=== PATIENT | female | born 1940 | race Caucasian/White ===

== ENCOUNTER → 2016-12-03 | Day surgery (SDC) | payer MEDICARE, OTHER ==
[~2016-12-03] MED LIST: ACID REDUCER150 MG PO; ARAVA20 MG PO; ATIVAN 1 MG1 MG PO; CALCIUM600 MG PO; DAILY VITE1 EACH PO; LISINOPRIL-HCT1 EAC1 PO; MAGNESIUM400 M1 PO; MECLIZINE HCL12.5 MG PO; MELATONIN10 MG PO; NORCO 5-325 TA1 EACH PO; NORVASC5 MG PO; PLAQUENIL200 MG PO; PREDNISONE5 MG PO; ULTRAM50 MG PO; VITAMIN D3400 UNIT PO; ZINC50 M1 PO
--- NOTE | ~2016-12-03 | OR ---
PATIENT'S NAME: ZENON PIERCE [facility] AGE: 76 Y [address] ROOM: [place] [address] [place] [facility] [place]: 12/03/2016 OR/Procedure Report DISCHARGE DATE: FAMILY PHYSICIAN: Baljit Watt PA-C ATTENDING PHYSICIAN: Chandrakant Godoy SURGEON: Chandrakant Godoy DPM MANAGER ACTUARIAL: DATE OF PROCEDURE: 12/03/2016 PREOPERATIVE DIAGNOSES: 1. Severe hallux valgus and bunion deformity, left foot. 2. Hammertoe deformity, second, third and fourth toes, left foot. 3. Dislocation of second, third, and fourth metatarsophalangeal joints, left foot. 4. Overlapping second, third, fourth toes, left foot. 5. Rheumatoid arthritis per patient history. POSTOPERATIVE DIAGNOSES: 1. Severe hallux valgus and bunion deformity, left foot. 2. Hammertoe deformity, second, third and fourth toes, left foot. 3. Dislocation of second, third, and fourth metatarsophalangeal joints, left foot. 4. Overlapping second, third, fourth toes, left foot. 5. Rheumatoid arthritis per patient history. PROCEDURES PERFORMED: 1. Boyd bunionectomy with total implant arthroplasty, first metatarsophalangeal joint (silastic total implant with proximal grommet) left foot. 2. Arthrodesis of proximal interphalangeal joints, second, third, and fourth toes with insertion of HammerFix implant (size medium second and third and size small fourth toe) left foot. 3. Metatarsal head resection, second, third, and fourth metatarsal left foot. OPERATIVE SUMMARY: On 12/03/2016, this 76-year-old female was transported to the operating room and placed on the operating room table in supine position. Next, under sedation local anesthesia was achieved via ankle block to the left. Next, the left foot was prepped and draped in the usual sterile fashion. Next, a pneumatic ankle tourniquet was applied to well-padded to site just proximal to malleoli and rapidly inflated to 200 mmHg, following exsanguination by Arthur Esmarch bandage. Next, the left lower extremity was delivered back to the operating room table, sterile draping was completed, and the following procedure was performed. PATIENT'S NAME: ZENON PIERCE [facility] AGE: 76 Y [address] ROOM: [place] [id number] [place] [facility] [place]: 12/03/2016 OR/Procedure Report DISCHARGE DATE: FAMILY PHYSICIAN: Baljit Watt PA-C ATTENDING PHYSICIAN: Chandrakant Godoy BUNIONECTOMY WITH TOTAL IMPLANT ARTHROPLASTY FIRST METATARSOPHALANGEAL JOINT (SILASTIC SIZE 20 WITH PROXIMAL GROMMET) LEFT FOOT At this time, the attention was directed towards the patient's left foot, on preoperative evaluation, she was noted to have severe hallux valgus with associated bunion deformity. The second, third, and fourth toes were overlapping the hallux laterally causing significant deformity and discomfort to the plantar aspect of the foot. So, to correct the digital deformities, the severe bunion needed to be addressed. Preoperative X-ray evaluation also revealed poor bone stock. It was determined that implant arthroplasty would be the best option. So at this time, an approximately 5-1/2 cm dorsal linear skin incision was created in the dorsal medial aspect of the first metatarsophalangeal joint on the left foot. This incision was deepened down through the subcutaneous tissues. All coursing venous tributaries were identified, isolated, clamped, cut, electrocoagulated, and encountered. All vital neurovascular structure were gently retracted in the medial and lateral fashion. Dissection was carried down to the level of the capsular and periosteal structures of the first metatarsophalangeal joint. Next, linear capsule and periosteal incision were created at the confines of the original skin incision. Next, the tissue was dissected in a medial and lateral fashion bringing it through the significant hypertrophic dorsal and medial eminence of the first metatarsal head. Overall, the articular surfaces were determined to be in fairly good condition considering there is complete lateral subluxation of the hallux. Next, attention was directed towards the lateral aspect where a comprehensive soft tissue release was performed including incising the extensor hallucis brevis tendon to be transposed medially at the time of closure. Also, medial capsulorrhaphy was created to help correct the valgus deformity at the time of closure. Next, attention was directed towards the joint where utilizing a sagittal saw, distal articular surface was removed first from the head of the metatarsal utilizing the implant osteotomy guide to minimize shortening and then the base of the proximal phalanx to the hallux was removed in the similar fashion. This was then freed from surrounding soft tissue attachments and extricated in toto from the surgical site. Once this has been completed, progressive reaming was used first on the metatarsal and then on the base of phalanx for placement of total silastic great toe implant. Once this had been completed, trial sizers were used and it was determined size 20 would be the best option. So, the wound was then flushed with copious amounts of sterile saline and the size 20 implant was placed with proximal grommet to protect from rubbing the bone against the implant. Once this was in position, there was noted to be very good reduction of the prior deformity. Being satisfied with the correction, the area was then again flushed with copious amounts of sterile saline and attention directed towards closure. The capsular tissues were reapproximated utilizing 3-0 Vicryl in a running suture except for medially where the capsulorrhaphy was performed to help correct the valgus deformity of the hallux. Next, 4-0 Vicryl retention stitch was placed PATIENT'S NAME: ZENON PIERCE [facility] AGE: 76 Y [address] ROOM: [place] [address] [place] [facility] [place]: 12/03/2016 OR/Procedure Report DISCHARGE DATE: FAMILY PHYSICIAN: Baljit Watt PA-C ATTENDING PHYSICIAN: Chandrakant Godoy to the subcutaneous tissues. The skin edges were then reapproximated utilizing 5-0 Vicryl in a running subcuticular fashion. Being satisfied with this, attention was then directed towards the second, third, and fourth toes where the following procedures were performed. ARTHRODESIS OF PROXIMAL INTERPHALANGEAL JOINT WITH INSERTION OF HAMMERFIX IMPLANT (SIZE MEDIUM TO SECOND AND THIRD AND SIZE SMALL TO FOURTH TOES) AND METATARSAL HEAD RESECTION SECOND, THIRD, AND FOURTH METATARSALS LEFT FOOT At this time, attention was directed towards the second, third, and fourth toes. It was noted previously the overlap of the hallux with dislocation and significant contracture of the toes. So, it was determined that the deformity obviously needed to be corrected at both the proximal and metatarsophalangeal joint level. So, at this time, an approximately 5-cm linear skin incision was created over the second, third, and fourth toes beginning just proximal to the metatarsophalangeal and ending distal to the proximal metatarsophalangeal joint to each. These incisions were deepened down to the subcutaneous tissue. All coursing venous tributaries were identified, isolated, clamped, cut, electrocoagulated, and encountered. All vital neurovascular structure were gently retracted in the medial and lateral fashion. Next, attention was directed towards the proximal interphalangeal joint to the respective toes, where transverse capsular tendinous incision was created directed over the joint. This was continued in a medial and lateral fashion so as to incise the collateral ligaments. Next, the tissue was dissected free from the dorsal aspect of the head as well as base of the proximal phalanx. There was noted to be some articular cartilage loss with the rigidity of the deformity. Once this had been completed, the sagittal saw was then used to remove the articular surfaces from each of the head of proximal and base of phalanx to resected toes 2 through 4 for arthrodesis procedure. Once these had been removed, they freed from surrounding soft tissue attachments and extricated in toto from the surgical site. Next, utilizing the HammerFix implant system, guidewire was placed to the respective toes and then proximal side was drilled with the distal side tapped and the respective implants placed. The K-wire was left in distally as it would be used across the metatarsophalangeal joint to help maintain correction of that joint. Being satisfied with the correction of the distal, attention was then directed towards the respective metatarsophalangeal joint. Attention had been made use metatarsal osteotomy, but upon incising the capsular tissues with dissection and freeing of this, there was noted to be significant loss of the metatarsal head where the joints had been dislocated. It took significant amount of use of the McGlamry elevator to free the underlying metatarsal heads. Once this had been a Milla- type osteotomy was created from distal to proximal on each metatarsal. Attempt was made to fixate the second after incising, but essentially the underlying metatarsal bone disintegrated and it was then decided that need to be removed due to the poor bone quality; this would not hold fixation, but PATIENT'S NAME: ZENON PIERCE [facility] AGE: 76 Y [address] ROOM: [place], [place] [address] [place] [facility] [place]: 12/03/2016 OR/Procedure Report DISCHARGE DATE: FAMILY PHYSICIAN: Baljit Watt PA-C ATTENDING PHYSICIAN: Chandrakant Godoy this would still allow for excellent reduction of the deformities. So, then the third and fourth metatarsal heads were removed in a similar fashion and extricated in toto from the surgical site. Upon doing so, there was noted to be excellent reduction of the metatarsophalangeal joint and the K-wire was then retrograde back across the metatarsophalangeal joint into the metatarsal shaft to help maintain the correction of the both proximal and metatarsophalangeal joints. On doing this, there was noted to be complete reduction of deformity to both joints as well as correction of the some medial deviation that has been present. Positioning was confirmed utilizing intraoperative C-arm and noted to be satisfactory. Being satisfied with this, attention was then directed towards closure to the second, third, and fourth incisions. First the deep structures would be approximated utilizing 4-0 Vicryl in a simple interrupted fashion. Next, 4-0 Vicryl retention stitch was placed to be subcutaneous tissues. The skin edges were reapproximated utilizing 4-0 Ethilon in a running suture. Being satisfied with this, attention was then directed towards bandaging. Jurgan Pin Balls were placed to the respective tips of the toe and the residual pin cut flush to the balls. Each incision was instilled with 0.5 mL of sterile dexamethasone phosphate. Next, a dressing consisting of Adaptic, sterile 4x4, Kerlix, Zachary, and Coban was applied in a mild compressive and corrective fashion to the patient's left foot. The previously applied pneumatic ankle tourniquet was rapidly deflated, and spontaneous capillary refill time noted in digits 1 through 5 of the patient's left foot. The patient tolerated the above procedures well and left the operating room in good condition with vital signs stable. She was returned to holding area for further monitoring prior to discharge. CHANDRAKANT GODOY DPM PDM/modl /[id number] d: t: 12/05/16 0013, OPERATIVE SUMMARY
== END | disposition disaster alternative care site (69) ==
LOC: GPOC 11-30 11:00 → GSDC 09:13 → GPOC 11:00
PROC: 0SGN04Z Fusion of Left Metatarsal-Phalangeal Joint with Internal Fixation Device, Open Approach (ICD-10-PCS; principal; 2016-12-03)
PROC: 0QTP0ZZ Resection of Left Metatarsal, Open Approach (ICD-10-PCS; 2016-12-03)
PROC: 0SRN0JZ Replacement of Left Metatarsal-Phalangeal Joint with Synthetic Substitute, Open Approach (ICD-10-PCS; 2016-12-03)
DX: M21.612 Bunion of left foot (principal); M20.12 Hallux valgus (acquired), left foot; M20.42 Other hammer toe(s) (acquired), left foot; S93.125A Dislocation of metatarsophalangeal joint of left lesser toe(s), initial encounter; M20.5X2 Other deformities of toe(s) (acquired), left foot; M06.9 Rheumatoid arthritis, unspecified; K21.9 Gastro-esophageal reflux disease without esophagitis; I10 Essential (primary) hypertension; F32.9 Major depressive disorder, single episode, unspecified; Z85.41 Personal history of malignant neoplasm of cervix uteri; Z87.891 Personal history of nicotine dependence; Z90.49 Acquired absence of other specified parts of digestive tract; Z98.41 Cataract extraction status, right eye; Z98.42 Cataract extraction status, left eye; Z96.652 Presence of left artificial knee joint; Z88.1 Allergy status to other antibiotic agents; Z98.890 Other specified postprocedural states; Z88.2 Allergy status to sulfonamides
CPT/HCPCS: C1776; J0690; J1100; J2001; J7120

== ENCOUNTER → 2017-01-05 | Outpatient (CLI) | payer MEDICARE, OTHER | LOC: LGSMG 13:49 | DX: N18.3 Chronic kidney disease, stage 3 (moderate) (principal) ==